=== PATIENT | male | born 1990 | race American Indian/Alaskan Native ===

== ENCOUNTER 2020-07-22 22:54 | Emergency (ER) | payer SELFPAY ==
[2020-07-22 23:55] VITALS: BP 127/92
[2020-07-22] MEDS ORDERED: dexAMETHasone 20 MG/5 ML VIAL IM ONE (23:56)
[2020-07-22] MEDS ORDERED: ALBUTEROL 2.5 MG/3 ML NEBU IH ONE (23:56)
[2020-07-22] MEDS ORDERED: IPRATROPIUM 0.02% NEBU 2.5 ML IH ONE (23:56)
--- NOTE | 2020-07-22 23:59 | Emergency Department Report ---
- General Chief Complaint: Upper Respiratory Infection Stated Complaint: COUGH/ ABD PAIN Time Seen by Provider: 07/22/20 23:51 Source: patient Mode of arrival: Ambulatory Limitations: No Limitations - History of Present Illness Initial Comments: 30-year-old -[place] male presents to the emergency room for 1 week of cough. Patient denies any fever chills no nausea no vomiting. Patient does admit that he has a history of asthma. Patient states his last Covid test was in February that was negative. Patient complains of lower abdominal pain when he coughs but only when he coughs. MD Complaint: cough Onset/Timin -: week(s) Severity: moderate Consistency: intermittent Improves With: nothing Worsens With: deep breaths, other (coughing) Associated Symptoms: rhinorrhea, cough Treatments Prior to Arrival: none - Related Data Previous Rx's Medication Instructions Recorded Last Taken Type HYDROcodone/ACETAMINOPHEN [Lortab 15 ml PO Q6HR #20 dose 12/17/13 Unknown Rx 10 mg-300 mg/15 ml Elxr] Omeprazole [Prilosec] 20 mg PO QDAY #30 capsule. 12/17/13 Unknown Rx Prednisone [predniSONE 10 mg 10 mg PO .TAPER #1 tab.ds.pk 07/23/20 Unknown Rx (6-Day Pack, 21 Tabs)] Allergies Allergy/AdvReac Type Severity Reaction Status Date / Time No Known Allergies Allergy Unverified 12/17/13 17:24 ED Review of Systems ROS: Stated complaint: COUGH/ ABD PAIN Other details as noted in HPI Comment: All other systems reviewed and negative ED Past Medical Hx - Social History Smoking Status: Never Smoker Substance Use Type: None - Medications Home Medications: Home Medications Medication Instructions Recorded Confirmed Last Taken Type HYDROcodone/ACETAMINOPHEN [Lortab 15 ml PO Q6HR #20 dose 12/17/13 Unknown Rx 10 mg-300 mg/15 ml Elxr] Omeprazole [Prilosec] 20 mg PO QDAY #30 capsule. 12/17/13 Unknown Rx Prednisone [predniSONE 10 mg 10 mg PO .TAPER #1 tab.ds.pk 07/23/20 Unknown Rx (6-Day Pack, 21 Tabs)] ED Physical Exam - General Limitations: No Limitations General appearance: alert, in no apparent distress - Head Head exam: Present: atraumatic, normocephalic - Eye Eye exam: Present: normal appearance - ENT ENT exam: Present: mucous membranes moist - Neck Neck exam: Present: normal inspection - Respiratory Respiratory exam: Present: rhonchi. Absent: chest wall tenderness, accessory muscle use - Cardiovascular Cardiovascular Exam: Present: regular rate, normal rhythm. Absent: systolic murmur, diastolic murmur, rubs, gallop - Extremities Exam Extremities exam: Present: full ROM - Back Exam Back exam: Present: normal inspection - Neurological Exam Neurological exam: Present: alert, oriented X3, normal gait - Psychiatric Psychiatric exam: Present: normal affect, normal mood - Skin Skin exam: Present: warm, dry, intact, normal color. Absent: rash ED Course Vital Signs 07/22/20 23:52 Temperature 99.1 F Pulse Rate 70 Respiratory 16 Rate Blood Pressure 127/92 [left arm] O2 Sat by Pulse 94 Oximetry - Reevaluation(s) Reevaluation #1: 07/23/20 01:11 Patient lung exam is clear no rhonchi no wheezing no shortness of breath. ED Medical Decision Making - Medical Decision Making 30-year-old -[place] male presents to the emergency room for 1 week of cough. Patient denies any fever chills no nausea no vomiting. Patient does admit that he has a history of asthma. Patient states his last Covid test was in February that was negative. Patient complains of lower abdominal pain when he coughs but only when he coughs. Patient is started on albuterol and Atrovent nebulizer dexamethasone 10 mg IM. Patient reports that he feels much better after having the treatment. Patient be discharged home on a prednisone pack. Patient states he does not need a prescription for an inhaler as he has one at home. Patient will be referred to outpatient provider for continued care. Critical care attestation.: If time is entered above; I have spent that time in minutes in the direct care of this critically ill patient, excluding procedure time. ED Disposition Clinical Impression: Wheezing, Cough, Asthma Disposition: TO HOME OR SELFCARE Is pt being admited?: No Does the pt Need Aspirin: No Condition: Stable Instructions: Asthma (ED), Cough, Adult, [id number] Additional Instructions: Please complete prednisone pack as prescribed. Continue with your asthma pump albuterol as needed. Follow-up with your primary care provider. Prescriptions: Prednisone [predniSONE 10 mg (6-Day Pack, 21 Tabs)] 10 mg PO .TAPER #1 tab.ds.pk Referrals: PRIMARY CARE, [Primary Care Provider] - 3-[address] [facility] [Provider Group] - 3-5 Days Forms: Work/School Release Form(ED)
== END 2020-07-23 01:10 | disposition home or self-care (01) ==
LOC: ED 22:54
DX: J45.909 Unspecified asthma, uncomplicated (principal); Z79.899 Other long term (current) drug therapy
CPT/HCPCS: 94640; 96372; 99282; J1100

== ENCOUNTER 2020-10-10 02:52 | Emergency (ER) | payer SELFPAY ==
[2020-10-10 03:26] VITALS: BP 128/72
[2020-10-10] MEDS ORDERED: PENICILLIN G BENZATHINE 1.2 MILLION UNIT/2 ML INJ IM ONE (04:22)
[2020-10-10] MEDS ORDERED: IBUPROFEN 600 MG TAB PO ONE (04:22)
--- NOTE | 2020-10-10 04:26 | Emergency Department Report ---
ED Male HPI - General Chief complaint: Urogenital-Male Stated complaint: BLADDER PAIN/TENDERNESS Source: patient Mode of arrival: Ambulatory Limitations: No Limitations - History of Present Illness Initial comments: Patient is a 30-year-old -Hond[place] male with no past medical history who presents to the ED with complaint of acute onset painful penile lesion for the last 1 week. Patient states that the symptoms have worsened especially in the last 2 days such that he is unable to wear any underwear for fear of worsening pain because of ulceration of the lesion on the penis. Patient admits to having unprotected sexual intercourse with men, the last time which was 2 weeks ago. Patient denies dysuria, testicular pain, fever, chills, low back pain, abdominal pain, dizziness, syncope, chest pain, shortness of breath, hematuria, nausea and vomiting. MD Complaint: other (painful penile lesion) -: Sudden, week(s) (1) Location: penis Radiation: none Severity: severe Severity scale (0 -10): 7 Quality: aching, burning, sharp Consistency: constant Improves with: none Worsens with: palpation new sexual partner denies other symptoms, rash (swollen ulcerated lesion on glans penis ). denies: discharge, swelling, mass, fever, nausea/vomiting, incontinence - Related Data Sexually active: Yes Previous Rx's Medication Instructions Recorded Last Taken Type HYDROcodone/ACETAMINOPHEN [Lortab 15 ml PO Q6HR #20 dose 12/17/13 Unknown Rx 10 mg-300 mg/15 ml Elxr] Omeprazole [Prilosec] 20 mg PO QDAY #30 capsule. 12/17/13 Unknown Rx Prednisone [predniSONE 10 mg 10 mg PO .TAPER #1 tab.ds.pk 07/23/20 Unknown Rx (6-Day Pack, 21 Tabs)] Acyclovir 400 mg PO Q8H #30 tablet 10/10/20 Unknown Rx Acyclovir [Acyclovir Ointment] 10 applic TP Q8H #1 tube 10/10/20 Unknown Rx Doxycycline Hyclate 100 mg PO Q12H #28 tablet. 10/10/20 Unknown Rx Ibuprofen [Motrin] 600 mg PO Q8H PRN #30 tablet 10/10/20 Unknown Rx Allergies Allergy/AdvReac Type Severity Reaction Status Date / Time No Known Allergies Allergy Unverified 12/17/13 17:24 ED Review of Systems ROS: Stated complaint: BLADDER PAIN/TENDERNESS Other details as noted in HPI Constitutional: denies: chills, fever Eyes: denies: eye pain, eye discharge, vision change ENT: denies: ear pain, throat pain Respiratory: denies: cough, shortness of breath, wheezing Cardiovascular: denies: chest pain, palpitations Endocrine: no symptoms reported Gastrointestinal: denies: abdominal pain, nausea, diarrhea Genitourinary: other (painful ulcerated lesion on glans penis). denies: urgency, dysuria Musculoskeletal: denies: back pain, joint swelling, arthralgia Skin: rash (painful ulcerated lesion on glans penis), change in color. denies: lesions Neurological: denies: headache, weakness, paresthesias Psychiatric: denies: anxiety, depression Hematological/Lymphatic: denies: easy bleeding, easy bruising ED Past Medical Hx - Past Medical History Previous Medical History?: No - Surgical History Past Surgical History?: No - Social History Smoking Status: Never Smoker Substance Use Type: None - Medications Home Medications: Home Medications Medication Instructions Recorded Confirmed Last Taken Type HYDROcodone/ACETAMINOPHEN [Lortab 15 ml PO Q6HR #20 dose 12/17/13 Unknown Rx 10 mg-300 mg/15 ml Elxr] Omeprazole [Prilosec] 20 mg PO QDAY #30 capsule. 12/17/13 Unknown Rx Prednisone [predniSONE 10 mg 10 mg PO .TAPER #1 tab.ds.pk 07/23/20 Unknown Rx (6-Day Pack, 21 Tabs)] Acyclovir 400 mg PO Q8H #30 tablet 10/10/20 Unknown Rx Acyclovir [Acyclovir Ointment] 10 applic TP Q8H #1 tube 10/10/20 Unknown Rx Doxycycline Hyclate 100 mg PO Q12H #28 tablet. 10/10/20 Unknown Rx Ibuprofen [Motrin] 600 mg PO Q8H PRN #30 tablet 10/10/20 Unknown Rx ED Physical Exam - General Limitations: No Limitations General appearance: alert, in no apparent distress - Head Head exam: Present: atraumatic, normocephalic, normal inspection - Eye Eye exam: Present: normal appearance, PERRL, EOMI Pupils: Present: normal accommodation - ENT ENT exam: Present: normal exam, normal orophraynx, mucous membranes moist, TM's normal bilaterally, normal external ear exam - Neck Neck exam: Present: normal inspection, full ROM - Respiratory Respiratory exam: Present: normal lung sounds bilaterally. Absent: respiratory distress, wheezes, rales, rhonchi, stridor, chest wall tenderness, accessory muscle use, decreased breath sounds, prolonged expiratory - Cardiovascular Cardiovascular Exam: Present: regular rate, normal rhythm, normal heart sounds. Absent: systolic murmur, diastolic murmur, rubs, gallop - GI/Abdominal GI/Abdominal exam: Present: soft, normal bowel sounds. Absent: distended, tenderness, guarding, rebound, hyperactive bowel sounds, hypoactive bowel sounds, organomegaly - exam: Present: circumcision, other (ulcerated tender lesion on glans penis) External exam: Present: erythema, lesions (ulcerated tender lesion on glans penis) - Extremities Exam Extremities exam: Present: normal inspection, normal capillary refill - Back Exam Back exam: Present: normal inspection, full ROM. Absent: tenderness, CVA tenderness (R), CVA tenderness (L), muscle spasm, paraspinal tenderness, vertebral tenderness, rash noted - Neurological Exam Neurological exam: Present: alert, oriented X3, CN II-XII intact, normal gait, reflexes normal - Psychiatric Psychiatric exam: Present: normal affect, normal mood - Skin Skin exam: Present: warm, dry, intact, normal color, rash (ulcerated tender lesion on glans penis), erythema, vesicles ED Course Vital Signs 10/10/20 10/10/20 10/10/20 03:25 04:59 05:31 Temperature 99.2 F Pulse Rate 84 Respiratory 16 16 16 Rate Blood Pressure 128/72 [Right] O2 Sat by Pulse 98 Oximetry ED Medical Decision Making - Medical Decision Making This is a 30-year-old -[place] male with no past medical history who presents to the ED with complaint of acute onset painful penile lesion for the last 1 week. Patient states that the symptoms have worsened especially in the last 2 days such that he is unable to wear any underwear for fear of worsening pain because of ulceration of the lesion on the penis. Patient admits to having unprotected sexual intercourse with men, the last time which was 2 weeks ago. In the ED, patient is alert and oriented x3 and is not in any distress. Patient was treated in the ED empirically for syphilis and discharged home on antibiotics and antiviral tablets for suspected genital herpes. Patient was therefore discharged home and advised to follow-up with the [facility] for further STD testing including HIV. Patient was advised to return to the ED immediately if symptoms get worse. Patient was also advised to ensure that his sexual partners also get tested at the [facility] and treated for the same. - Differential Diagnosis syphilis, genital herpes; nongonococcal STD Critical care attestation.: If time is entered above; I have spent that time in minutes in the direct care of this critically ill patient, excluding procedure time. ED Disposition Clinical Impression: STD (sexually transmitted disease), Syphilis in male, Genital herpes in men, Nongonococcal urethritis in male Disposition: DC- TO HOME OR SELFCARE Is pt being admited?: No Does the pt Need Aspirin: No Condition: Stable Instructions: Syphilis, Antibiotic Medicine, Adult, [id number], Genital Herpes Additional Instructions: Take medications with food, drink plenty of fluids and follow up with the [facility] dept in 3-5 days for reevaluation. Return to the ED immediately if symptoms get worse. Ensure that your sexual partners get tested and treated for the same. Prescriptions: Acyclovir 400 mg PO Q8H #30 tablet Acyclovir [Acyclovir Ointment] 10 applic TP Q8H #1 tube Doxycycline Hyclate 100 mg PO Q12H #28 tablet. Ibuprofen [Motrin] 600 mg PO Q8H PRN #30 tablet PRN Reason: Pain Referrals: [facility] [Outside] - 3-5 Days Forms: STI Treatment and Prevention Time of Disposition: 04:26 Print Language: SETSWANA
== END 2020-10-10 05:32 | disposition home or self-care (01) ==
LOC: ED 02:52
DX: A64 Unspecified sexually transmitted disease (principal); A53.9 Syphilis, unspecified; A60.00 Herpesviral infection of urogenital system, unspecified; Z79.899 Other long term (current) drug therapy
CPT/HCPCS: 96372; 99282; J0561

== ENCOUNTER 2020-11-08 20:02 | Emergency (ER) | payer SELFPAY ==
[2020-11-08 22:17] VITALS: BP 132/81
[2020-11-09] MEDS ORDERED: LIDOCAINE VISCOUS 2% 15 ML ORAL LIQD PO ONE (01:06)
[2020-11-09] MEDS ORDERED: FAMOTIDINE 20 MG TAB PO ONE (01:06)
[2020-11-09] MEDS ORDERED: ALUM-MAG HYDROXIDE-SIMETHICONE 200-200-20MG/5ML ORAL LIQD 30 ML PO ONE (01:06)
--- NOTE | 2020-11-09 01:33 | XRay Report ---
CHEST 2 VIEWS INDICATION / CLINICAL INFORMATION: Epigastric discomfort. COMPARISON: None available. FINDINGS: SUPPORT DEVICES: None. HEART / MEDIASTINUM: No significant abnormality. LUNGS / PLEURA: No significant pulmonary or pleural abnormality. No pneumothorax. ADDITIONAL FINDINGS: No significant additional findings. IMPRESSION: 1. No acute findings. Signer Name: Jorje Ritter MD Signed: 11/09/2020 1:28 AM Workstation Name: [id number]
--- NOTE | 2020-11-09 02:07 | Emergency Department Report ---
ED General Adult HPI - General Chief complaint: Sore Throat Stated complaint: SORE THROAT/RT SIDE CHEST PAIN Source: patient Mode of arrival: Ambulatory Limitations: No Limitations - History of Present Illness Initial comments: Patient is a 40-year-old -[place] male with no past medical history presents to the ED with complaint of acute onset persistent sore throat and mild epigastric pain for the last 1 week, worse in the last 2 days especially with food. Patient states that eating and swallowing food makes the pain worse. Patient denies fever, chills, nausea, vomiting, dizziness, syncope, chest pain, shortness of breath, cough, hemoptysis, diarrhea, dysuria, urinary frequency and urgency, headache, nasal and sinus congestion or palpitations. MD Complaint: Sore throat, mild epigastric discomfort -: Sudden, week(s) (1) Location: mouth, abdomen Radiation: non-radiation Severity scale (0 -10): 2 Quality: aching Consistency: intermittent Improves with: none Worsens with: none Associated Symptoms: denies other symptoms. denies: confusion, chest pain, cough, diaphoresis, fever/chills, headaches, loss of appetite, malaise, nausea/vomiting, rash, seizure, shortness of breath, syncope, weakness, other Treatments Prior to Arrival: none - Related Data Previous Rx's Medication Instructions Recorded Last Taken Type HYDROcodone/ACETAMINOPHEN [Lortab 15 ml PO Q6HR #20 dose 12/17/13 Unknown Rx 10 mg-300 mg/15 ml Elxr] Omeprazole [Prilosec] 20 mg PO QDAY #30 capsule. 12/17/13 Unknown Rx Prednisone [predniSONE 10 mg 10 mg PO .TAPER #1 tab.ds.pk 07/23/20 Unknown Rx (6-Day Pack, 21 Tabs)] Acyclovir 400 mg PO Q8H #30 tablet 10/10/20 Unknown Rx Acyclovir [Acyclovir Ointment] 10 applic TP Q8H #1 tube 10/10/20 Unknown Rx Doxycycline Hyclate 100 mg PO Q12H #28 tablet. 10/10/20 Unknown Rx Ibuprofen [Motrin] 600 mg PO Q8H PRN #30 tablet 10/10/20 Unknown Rx Famotidine [Pepcid] 20 mg PO BID #60 tablet 11/09/20 Unknown Rx Lidocaine Viscous 2% 10 ml PO Q6H PRN #120 ml 11/09/20 Unknown Rx Allergies Allergy/AdvReac Type Severity Reaction Status Date / Time No Known Allergies Allergy Unverified 12/17/13 17:24 ED Review of Systems ROS: Stated complaint: SORE THROAT/RT SIDE CHEST PAIN Other details as noted in HPI Constitutional: denies: chills, fever Eyes: denies: eye pain, eye discharge, vision change ENT: throat pain. denies: ear pain Respiratory: denies: cough, shortness of breath, wheezing Cardiovascular: denies: chest pain, palpitations Endocrine: no symptoms reported Gastrointestinal: abdominal pain (epigastric discomfort). denies: nausea, vomiting, diarrhea Genitourinary: denies: urgency, dysuria Musculoskeletal: denies: back pain, joint swelling, arthralgia Skin: denies: rash, lesions Neurological: denies: headache, weakness, paresthesias Psychiatric: denies: anxiety, depression Hematological/Lymphatic: denies: easy bleeding, easy bruising ED Past Medical Hx - Past Medical History Previous Medical History?: Yes Additional medical history: Bronchitis - Surgical History Past Surgical History?: No - Social History Smoking Status: Never Smoker Substance Use Type: None - Medications Home Medications: Home Medications Medication Instructions Recorded Confirmed Last Taken Type HYDROcodone/ACETAMINOPHEN [Lortab 15 ml PO Q6HR #20 dose 12/17/13 Unknown Rx 10 mg-300 mg/15 ml Elxr] Omeprazole [Prilosec] 20 mg PO QDAY #30 capsule. 12/17/13 Unknown Rx Prednisone [predniSONE 10 mg 10 mg PO .TAPER #1 tab.ds.pk 07/23/20 Unknown Rx (6-Day Pack, 21 Tabs)] Acyclovir 400 mg PO Q8H #30 tablet 10/10/20 Unknown Rx Acyclovir [Acyclovir Ointment] 10 applic TP Q8H #1 tube 10/10/20 Unknown Rx Doxycycline Hyclate 100 mg PO Q12H #28 tablet. 10/10/20 Unknown Rx Ibuprofen [Motrin] 600 mg PO Q8H PRN #30 tablet 10/10/20 Unknown Rx Famotidine [Pepcid] 20 mg PO BID #60 tablet 11/09/20 Unknown Rx Lidocaine Viscous 2% 10 ml PO Q6H PRN #120 ml 11/09/20 Unknown Rx ED Physical Exam - General Limitations: No Limitations General appearance: alert, in no apparent distress - Head Head exam: Present: atraumatic, normocephalic, normal inspection - Eye Eye exam: Present: normal appearance, PERRL, EOMI Pupils: Present: normal accommodation - ENT ENT exam: Present: normal exam, normal orophraynx, mucous membranes moist, TM's normal bilaterally, normal external ear exam - Neck Neck exam: Present: normal inspection, full ROM - Respiratory Respiratory exam: Present: normal lung sounds bilaterally. Absent: respiratory distress, wheezes, rhonchi, chest wall tenderness, accessory muscle use, decreased breath sounds, prolonged expiratory - Cardiovascular Cardiovascular Exam: Present: regular rate, normal rhythm, normal heart sounds. Absent: systolic murmur, diastolic murmur, rubs, gallop - GI/Abdominal GI/Abdominal exam: Present: soft, normal bowel sounds. Absent: tenderness, guarding, rebound, hyperactive bowel sounds, hypoactive bowel sounds - Extremities Exam Extremities exam: Present: normal inspection, full ROM, normal capillary refill - Back Exam Back exam: Present: normal inspection, full ROM. Absent: tenderness, CVA tenderness (R), muscle spasm, paraspinal tenderness - Neurological Exam Neurological exam: Present: alert, oriented X3, CN II-XII intact, normal gait, reflexes normal - Psychiatric Psychiatric exam: Present: normal affect, normal mood, anxious - Skin Skin exam: Present: warm, dry, intact, normal color. Absent: rash ED Course Vital Signs 11/08/20 22:14 Temperature 98.8 F Pulse Rate 61 Respiratory 16 Rate Blood Pressure 132/81 [Right] O2 Sat by Pulse 100 Oximetry ED Medical Decision Making - Radiology Data Radiology results: report reviewed, image reviewed [address] [address] XRay Report Signed Patient: CORAL MARTINEZ MR#: [id number] : 1990 Acct:[id number] Age/Sex: 30 / M ADM Date: 11/08/20 Loc: ED Attending Dr: Ordering Physician: SAVANNAH ROMERO Date of Service: 11/09/20 Procedure(s): XR chest routine 2V Accession Number(s): [id number] cc: SAVANNAH ROMERO Fluoro Time In Minutes: CHEST 2 VIEWS INDICATION / CLINICAL INFORMATION: Epigastric discomfort. COMPARISON: None available. FINDINGS: SUPPORT DEVICES: None. HEART / MEDIASTINUM: No significant abnormality. LUNGS / PLEURA: No significant pulmonary or pleural abnormality. No pneumothorax. ADDITIONAL FINDINGS: No significant additional findings. IMPRESSION: 1. No acute findings. Signer Name: Jojre Cantor MD Signed: 11/09/2020 1:28 AM Workstation Name: [id number] Transcribed By: CW Dictated By: MARY CANTOR MD Electronically Authenticated By: MARY CANTOR MD Signed Date/Time: 11/09/20127 DD/ 7 TD/TT: - Medical Decision Making This is a 40-year-old -[place] male with no past medical history presents to the ED with complaint of acute onset persistent sore throat and mild epigastric pain for the last 1 week, worse in the last 2 days especially with food. Patient states that eating and swallowing food makes the pain worse. In the ED, patient is alert and oriented x3 and is not in any distress. Chest x- ray shows no acute cardiopulmonary abnormalities or pneumonitis. Patient was treated for suspected GERD complications with antacids. On reevaluation, patient felt better, the discomfort in his throat and epigastric area resolved. Patient symptoms are likely due to GERD complications. Patient was discharged home on medications and advised to follow-up with his primary care physician in 7 to 10 days for reevaluation or return to the ED immediately if symptoms get worse. - Differential Diagnosis GERD; Pharyngitis; URI; Viral syndrome Critical care attestation.: If time is entered above; I have spent that time in minutes in the direct care of this critically ill patient, excluding procedure time. ED Disposition Clinical Impression: GERD (gastroesophageal reflux disease) Qualifiers: Esophagitis presence: esophagitis presence not specified Qualified Code(s): K21.9 - Gastro-esophageal reflux disease without esophagitis Acute pharyngitis, unspecified Qualifiers: Pharyngitis/tonsillitis etiology: other specified organisms Qualified Code(s): J02.8 - Acute pharyngitis due to other specified organisms Disposition: - TO HOME OR SELFCARE Is pt being admited?: No Does the pt Need Aspirin: No Condition: Stable Instructions: Gastroesophageal Reflux Disease, Adult, [id number], Sore Throat, [id number] Additional Instructions: Chest x-ray showed no acute cardiopulmonary abnormalities or pneumonitis. Your symptoms are likely due to complications of acid reflux causing epigastric discomfort as well as mild sore throat. Therefore take medication with food, drink plenty of fluids and follow-up with your primary care physician in 7 to 10 days for reevaluation. Return to the ED immediately if symptoms get worse. Prescriptions: Lidocaine Viscous 2% 10 ml PO Q6H PRN #120 ml PRN Reason: Sore Throat Famotidine [Pepcid] 20 mg PO BID #60 tablet Referrals: [facility] [Provider Group] - 3-5 Days Time of Disposition: 02:07 Print Language: SWEDISH
== END 2020-11-09 02:45 | disposition home or self-care (01) ==
LOC: ED 20:02
DX: K21.9 Gastro-esophageal reflux disease without esophagitis (principal); J02.9 Acute pharyngitis, unspecified
CPT/HCPCS: 71046; 99283